=== PATIENT | male | born 1985 | race Caucasian/White ===

== ENCOUNTER 2019-12-27 15:00 | Emergency (ER) | payer BC, OTHER ==
[2019-12-27] MEDS ORDERED: propofoL 0 ML ONE (15:06)
[2019-12-27] MEDS ORDERED: Ketamine 500 mg/10 ML MDV ONE (15:22)
--- NOTE | 2019-12-27 15:43 | PCM.PRNOTE ---
- Free Text/Narrative Note: Anes Note I was called to ER to provide conscious sedation for a dislocated r5ight ankle. 25mg ketamine IV X 4 achieved adequate sedation. Darion well. VS stable. Respirations smooth and regular. Time with patient [phone] Reece Leon
[2019-12-27] MEDS ORDERED: Sodium Chloride 0.9% 2.5 ML Syringe FLUSH PRN (15:46)
[2019-12-27] MEDS ORDERED: Sodium Chloride 0.9% 10 ML Syringe FLUSH PRN (15:46)
--- NOTE | 2019-12-27 15:48 | EDM.PDOC ---
ED HPI GENERAL MEDICAL PROBLEM - General Chief Complaint: Lower Extremity Injury/Pain Stated Complaint: BROKEN RT ANKLE Time Seen by Provider: 12/27/19 15:45 Source of Information: Reports: Patient, EMS History Limitations: Reports: No Limitations - History of Present Illness INITIAL COMMENTS - FREE TEXT/NARRATIVE: There is a 34-year-old male with no pertinent past medical history presenting with a right ankle injury. [place] with [place] when he stepped off of a ledge wrong and twisted his right ankle, causing immediate onset of deformity to the right ankle. He was unable to bear weight afterwards. No other injuries. EMS crew arrived and administered IV fentanyl and placed him in a vacuum splint. Subsequently transported to our ED. Here in the ED, he only complains of right ankle pain. No other complaints. Denies any numbness or loss of sensation to the right lower extremity. ROS: A 10-point review of systems was negative, except as noted in the HPI (or in the ROS section of this note). Past medical history: Reviewed, no additional pertinent history. Surgical history: Reviewed in system, no additional pertinent history. Social history: Reviewed in system, no additional pertinent history. Family history: Reviewed in system, no additional pertinent history. PHYSICAL EXAM Vital signs reviewed. Nursing notes reviewed. Constitutional: Awake, alert, non-distressed. Head: Normocephalic, atraumatic. Eyes: EOMI, conjunctiva normal, no discharge, no scleral icterus. Ears, Nose, Throat: External ears and nose normal, moist oral mucosa. Cardiovascular: 2+ right DP pulse, capillary refill less than 2 seconds in the right foot. Pulmonary: normal work of breathing, no accessory muscle use. Abdomen/GI: Soft, nontender, nondistended, no guarding or rigidity, no masses. Musculoskeletal: Gross deformity of the right ankle joint, the right foot is internally rotated and there is tenting and blanching of the skin on the lateral aspect of the right ankle joint. Integumentary: Appropriate color for ethnicity, warm, dry, no pallor or jau ndice, no rash. Neurologic: Alert, answering questions appropriately, normal speech, no facial droop, moving all extremities well. Psychiatric: Appropriate mood and affect, normal thought process. right ankle Pain Score (Numeric/FACES): 7 - Related Data Allergies Allergy/AdvReac Type Severity Reaction Status Date / Time amoxicillin Allergy Rash Verified 12/27/19 16:35 Home Meds: Home Meds Acetaminophen [Acetaminophen Extra Strength] 500 - 1,000 mg PO Q6H PRN #30 tablet 12/27/19 [Rx] Ibuprofen 400 mg PO Q6H PRN #30 tablet 12/27/19 [Rx] oxyCODONE HCl [Oxycodone HCL] 10 mg PO Q6HR PRN #20 tablet 12/27/19 [Rx] Past Medical History - Past Health History Medical/Surgical History: Denies Medical/Surgical History Social & Family History - Family History Family Medical History: Noncontributory - Recreational Drug Use Recreational Drug Use: No Review of Systems - Review of Systems Review Of Systems: See Below ED EXAM, GENERAL - Physical Exam Exam: See Below ED TRAUMA EXTREMITY PROCEDURES - Joint Reduction Right Ankle Sedation: Conscious Sedation Pre-Procedure NV Status: Normal Post-Procedure NV Status: Normal Technique: Traction/Counter Traction Number of Attempts: 1 Post-Reduction Imaging: Acceptably Reduced Joint Reduction Complications: No - Splinting Right Lower Extremity Splint Site: Ankle Pre-Procedure NV Status: Normal Post-Procedure NV Status: Normal Splint Material: Fiberglass Splint Design: Stirrup, Posterior Applied & Form Fitted By: Provider Provider Post-Splint Application NV Check: NV Status Normal Complications: Yes Course - Vital Signs Text/Narrative:: Patient hemodynamically stable, afebrile, well-appearing, looks nontoxic. Differential diagnosis includes but is not limited to: Fracture, dislocation, vascular injury, nerve injury, etc. Immediately roomed on arrival. On physical examination, patient has tenting of the right ankle joint concerning for impending skin compromise. We immediately paged the anesthesia team due to need to perform emergent closed reduction. IV access was already in place. Refer to the DESIGN CONSULTANT note for information about the sedation procedure. We then performed a closed reduction and the patient was splinted as detailed in the procedure note. Neurovascularly intact after splinting and pain has significantly improved. X-rays show no obvious fracture, looks to be a pure dislocation. We will plan to discharge home with prescriptions for Tylenol, Motrin, oxycodone. Splint care instructions provided. Will follow up with orthopedic surgery clinic. Plan: Patient is stable to discharge home with outpatient orthopedic surgery clinic follow-up. Strict emergency department return precautions were provided, patient indicated understanding. All questions were answered prior to departure. Discharged in good condition. Last Recorded V/S: Last Vital Signs Temp 35.9 C L 12/27/19 15:06 Pulse 107 H 12/27/19 15:06 Resp 20 12/27/19 15:06 BP 126/86 12/27/19 15:06 Pulse Ox 96 12/27/19 15:06 - Orders/Labs/Meds Orders: Active Orders 24 hr Category Date Time Status DME for Discharge [COMM] Stat Oth 12/27/19 15:47 Ordered Saline Lock Insert [OM.PC] Stat Oth 12/27/19 15:46 Ordered Meds: Medications Discontinued Medications Generic Name Dose Route Start Last Admin Trade Name Freq PRN Reason Stop Dose Admin Fentanyl 50 mcg 12/27/19 16:31 12/27/19 16:43 Fentanyl IVPUSH 12/27/19 16:32 50 mcg ONETIME ONE Administration Propofol Confirm 12/27/19 15:06 12/27/19 16:33 Diprivan 50 Ml Administered 12/27/19 15:07 Not Given Dose 50 mls @ as directed .ROUTE .STK-MED ONE Lactated Ringer's 1,000 mls @ 999 mls/hr 12/27/19 16:00 12/27/19 16:37 Ringers, Lactated IV 999 mls/hr ASDIRECTED DINA Administration Ketamine HCl Confirm 12/27/19 15:22 12/27/19 16:32 Ketalar Administered 12/27/19 15:23 Not Given Dose 500 mg .ROUTE .STK-MED ONE Ondansetron HCl 4 mg 12/27/19 16:08 12/27/19 16:36 Zofran IVPUSH 12/27/19 16:09 4 mg ONETIME ONE Administration Sodium Chloride 10 ml 12/27/19 15:46 12/27/19 16:37 Saline Flush FLUSH 10 ml ASDIRECTED PRN Administration Keep Vein Open Sodium Chloride 2.5 ml 12/27/19 15:46 12/27/19 16:37 Saline Flush FLUSH 2.5 ml ASDIRECTED PRN Administration Keep Vein Open Departure - Departure Time of Disposition: 17:18 Disposition: Home, Self-Care 01 Condition: Good Clinical Impression: Dislocation of right ankle joint, initial encounter - Discharge Information *PRESCRIPTION DRUG MONITORING PROGRAM REVIEWED*: Yes *COPY OF PRESCRIPTION DRUG MONITORING REPORT IN PATIENT TI: Not Applicable Prescriptions: Acetaminophen [Acetaminophen Extra Strength] 500 - 1,000 mg PO Q6H PRN #30 tablet PRN Reason: Pain (Mild 1-3) Ibuprofen 400 mg PO Q6H PRN #30 tablet PRN Reason: Pain (Mild 1-3) oxyCODONE HCl [Oxycodone HCL] 10 mg PO Q6HR PRN #20 tablet PRN Reason: Pain (Severe 7-10) Instructions: Crutch Use, Adult, [id number], Cast or Splint Care, Adult, [id number], Ankle Dislocation, [id number] Referrals: [facility] - Orthopaedics [Provider Group] - 1 Week (For follow-up care.) Forms: ED Department Discharge Additional Instructions: You were seen in the emergency department for a right ankle dislocation. This was reduced and you were placed in a splint. He will be discharged home on crutches to follow-up with orthopedic surgery clinic in 1 to 2 weeks time. I will prescribe several medications for pain including acetaminophen, ibuprofen, and oxycodone as needed for severe pain. Warning signs to come back to the ER include worsening pain, numbness or loss of feeling in the right lower extremity, or any other new or concerning symptoms. Please return the emergency department immediately if your symptoms worsen or if you feel worse. Thank you for choosing the [facility] emergency department in [place] for your medical needs today. It was a pleasure caring for you. The following information is given to patients seen in the emergency department who are being discharged. This information is to outline your options for follow-up care. We provide all patients seen in our emergency department with a follow-up referral. The need for follow-up, as well as the timing and circumstances, are variable depending upon the specifics of your emergency department visit. If you don't have a primary care physician on staff, we will provide you with a referral. We always advise you to contact your personal physician following an emergency department visit to inform them of the circumstance of the visit and for follow-up with them and/or the need for any referrals to a consulting specialist. The emergency department will also refer you to a specialist when appropriate. This referral assures that you have the opportunity for follow-up care with a specialist. All of these measure are taken in an effort to provide you with optimal care, which includes your follow-up. Under all circumstances we always encourage you to contact your private physician who remains a resource for coordinating your care. When calling for follow-up care, please make the office aware that this follow-up is from your recent emergency room visit. If for any reason you are refused follow-up, please contact the [facility] Emergency Department at and asked to speak to the emergency department charge nurse. If you do not have a primary care physician that is caring for you, you can contact these clinics below to set up an appointment to establish care: [facility] - Primary Care [address] [place], [place] [id number] [facility] [address] [place] [id number] Sepsis Event Note (ED) - Evaluation Sepsis Screening Result: No Definite Risk - Focused Exam Vital Signs: Vital Signs Temp Pulse Resp BP Pulse Ox 12/27/19 15:06 35.9 C L 107 H 20 126/86 96 - My Orders Last 24 Hours: My Active Orders 12/27/19 15:46 Saline Lock Insert [OM.PC] Stat 12/27/19 15:47 DME for Discharge [COMM] Stat - Assessment/Plan Last 24 Hours: My Active Orders 12/27/19 15:46 Saline Lock Insert [OM.PC] Stat 12/27/19 15:47 DME for Discharge [COMM] Stat
[2019-12-27] MEDS ORDERED: Lactated Ringers 1,000 ML IV SCH (16:00)
[2019-12-27] MEDS ORDERED: Ondansetron 4 MG/2 ML SDV IVPUSH ONE (16:08)
--- NOTE | 2019-12-27 16:19 | CR ---
Indication: Dislocation reduction Technique: Left ankle 2 views Comparison: None Findings/Impression: Ankle has been placed in a cast. Bone alignment is normal. No fracture evident. Unremarkable joint spaces and soft tissues. Dictated by Lamine Goins MD @ Dec 27 2019 4:12PM Signed by Dr. Lamine Goins @ Dec 27 2019 4:18PM
[2019-12-27] MEDS ORDERED: fentaNYL 50 MCG/ML SDV IVPUSH ONE (16:31)
== END 2019-12-27 17:35 | disposition home or self-care (01) ==
LOC: MW.ED 15:00
DX: S93.04XA Dislocation of right ankle joint, initial encounter (principal); Z88.1 Allergy status to other antibiotic agents; W09.8XXA Fall on or from other playground equipment, initial encounter; Y93.44 Activity, trampolining; Y92.830 Public park as the place of occurrence of the external cause
CPT/HCPCS: 27840; 73600; 96374; 96375; 99283; J2405; J3010; J7120; 01462; 27810; 29515